=== PATIENT | female | born 2000 | race Caucasian/White ===

== ENCOUNTER 2022-11-09 19:10 | Emergency (ER) | payer BC, SELFPAY ==
[2022-11-09 19:26] VITALS: BP 129/81; PULSE 93; RESP 16; TEMP 36.9; O2SAT 100
--- NOTE | 2022-11-09 19:29 | ED.SKABFB ---
HPI - Skin/Abscess/Foreign Bdy General Chief complaint: Skin/Abscess/Foreign Body Stated complaint: rash Time Seen by Provider: 11/09/22 19:15 Source: patient Mode of arrival: ambulatory Limitations: no limitations History of Present Illness HPI narrative: patient is a 22-year-old female who presents with poison melecio rash to face, upper arms, thighs and back. Patient states it has been there since Sunday. Patient has used [id number] poison melecio treatments, hydrocortisone cream, Benadryl and Zyrtec with only lneh-jw-wskysdye relief. Patient states normally it goes away on its own but this has been spreading and worse. Denies any shortness of breath, mouth swelling, tongue swelling. Related Data Allergies Allergy/AdvReac Type Severity Reaction Status Date / Time No Known Allergies Allergy Verified 11/09/22 19:30 Review of Systems Review of Systems: All systems reviewed & are unremarkable except as noted in HPI and below Constitutional: Constitutional: Denies body ache(s), Denies chills, Denies fatigue, Denies fever(s), Denies headache(s), Denies malaise and Denies weakness Eyes: Eyes: Denies blurry vision, Denies irritation and Denies loss of vision ENT: Denies otalgia, Denies headache(s), Denies nasal discharge, Denies sinus pain and Denies sore throat Cardiovascular: Cardiovascular: Denies chest pain, Denies irregular heart rhythm and Denies dyspnea Respiratory: Respiratory: Denies dyspnea Gastrointestinal: Gastrointestinal: Denies abdominal pain, Denies melena, Denies hematochezia, Denies diarrhea, Denies nausea and Denies vomiting Musculoskeletal: Musculoskeletal: Denies back pain, Denies myalgias and Denies arthralgias Integumentary/Breasts: Skin/Breast: Reports pruritus and Reports rash Neurologic: Denies headache(s), Denies loss of vision and Denies weakness Psychiatric: Psychiatric: Reports no additional psychiatric complaints Endocrine: Endocrine: Denies fatigue PMFSH Comments At time of signature, agree with nursing past medical, surgical, social and family history. There is no relevant family history pertinent to the presenting complaint. Exam Const: General: cooperative, healthy appearing, comfortable, no acute distress and well nourished Nutritional Appearance: well nourished Orientation/consciousness: patient oriented x3 Limitations: no limitations HENMT: Head: normal to inspection, normocephalic and atraumatic Ears: hearing grossly normal bilaterally and external ears normal Face/Nose/Sinus: Normal external nose present, normal facial exam and face symmetric Face and sinus: normal facial exam and face symmetric Mouth: Yes lip normal Eyes: General: appearance normal, both eyes and all related structures Alignment and Position: alignment normal and position normal Periorbital: periorbital findings normal Eyelids: eyelids normal Pupils: Equal, round and reactive pupils present EOM: EOMs intact bilaterally Neck: Neck: normal visual inspection, full ROM and supple Chest: Chest palpation & inspection: normal inspection of the chest Resp: Effort & Inspection: normal respiratory effort and able to speak in complete sentences Auscultation: clear to auscultation bilaterally Cardio: Rate: regular rate Rhythm: regular rhythm Heart sounds: S1 normal heart sound present and S2 normal heart sound present GI: Inspection: normal to inspection Skin: General skin exam: normal color and no rashes or lesions noted Rashes: rashes noted vesicles full body arrangement grouped, borders sharp, color red and surface waxy Neuro: General: patient oriented x3 and moves all extremities Cranial nerves: Yes Equal, round and reactive pupils present Speech: normal speech Gait exam (Neuro): Normal gait present Extrem: General: normal to inspection, full ROM and no edema Psych: Appearance: grossly normal and well kempt Mental Status: mental status grossly normal Speech and movement: Normal speech and movement
[2022-11-09 19:31] VITALS: BP 129/81; PULSE 93; RESP 16; TEMP 36.9; O2SAT 100
== END 2022-11-09 20:13 | disposition home or self-care (01) ==
PROVIDERS: Emergency Provider Nurse Practitioner Family; PCP Nurse Practitioner Family
DX: L23.7 Allergic contact dermatitis due to plants, except food (principal)
CPT/HCPCS: 99203; G0463

== ENCOUNTER 2024-05-13 08:33 | Outpatient (CLI) | payer BC, SELFPAY ==
--- NOTE | ~2024-05-13 | US_ITS ---
US breast LT limited 05/13/2024 09:15 Indication: Palpable left breast lump Procedure: High-resolution Limited ultrasound of the left breast Comparison: No prior studies for comparison. Findings: At 12:00, 3 cm from the nipple there is a 4 mm cyst. No suspicious masses to suggest malign mili. Impression: 1: No sonographic evidence for malignancy in the left breast. BI-RADS CATEGORY 2 - BENIGN FINDINGS Reviewed, dictated and finalized at location B. Impression: 1: No sonographic evidence for malignancy in the left breast. BI-RADS CATEGORY 2 - BENIGN FINDINGS
--- OUTSIDE RECORDS SUMMARY | 2024-05-13 08:47 | XMS_ITS | Clinical Summary ---
Author Organization [facility] Address [address] [place] [id number] Care Team Providers Care Railcar Carpenter Name Role Phone Unavailable Primary Care Provider Unavailabl e Social History Tobacco Use Types Packs/Day Years Used Date Smoking Tobacco: Never Assessed Comments Unknown Sex and Gender Information Value Date Recorded Sex Assigned at Not on file Legal Sex Female 6:38 PM CDT Gender Identity Not on file Sexual Orientation Not on file Plan of Treatment Health Maintenance Due Date Last Done Comments Cervical Cancer Screening Pa p Smear (Age 21 to 29) Every 3 Years 1999 Cervical Cancer Screening 1999 Annual Physical 06/02/2002 HPV Vaccines (1 - 3-dose series) 06/02/2014 Hepatitis C 06/02/2017 DTaP, Tdap and Td Vaccines ( 1 - Tdap) 06/02/2018 Hepatitis B Vaccines (1 of 3 - 19+ 3-dose series) 06/02/2018 COVID-19 Vaccine (2023-2 5 season) 2023 Influenza Adult (#1) 2023 Meningococcal B Vaccine Aged Out No l onger eligible based on patient's age to complete this topic Meningococcal Vaccine Aged Out No gonzalo phoebe eligible based on patient's age to complete this topic Pneumococcal Vaccine: Pediat rics (0 to 5 Years) and At-Risk Patients (6 to 64 Years) Aged Out No longer eligible b ased on patient's age to complete this topic RSV Immunizations Under 20 Months Aged Out No longer eligible based on patient's age to complete this topic
--- OUTSIDE RECORDS SUMMARY | 2024-05-13 08:47 | XMS_ITS | Clinical Summary ---
Author Organization [facility] Address [address] [place] [address] Care Team Providers Care Traffic Warehouse Supervisor Name Role Phone Daniel Espinoza MD Unavailable [phone] Daniel Espinoza MD Primary Care Provider [phone] Source Comments [facility],non-owned Affiliates and Associated Physician Practices is amultiple site organization consisting of ambulatory clinics and hospital sitesin [place], [place], [place] and [place]. This disclosure is being madepursuant to the Care Everywhere program and may not contain all information available regarding this patient. Last updated 17.[facility] Allergies No known active allergies Medications Be aware that medications may not be up to date on this document. Always verify current medications with the patient. No known medications Active Problems Problem Noted Date Diagnosed Date Well child visit 09/09/2010 Overview (09/07/2016): 10 yo 09/09/10 13 yo 08/28/13 14 yo 08/18/14 16 yo 09/07/16 Resolved Problems Problem Noted Date Diagnosed Date Resolved Date Streptococcal pharyngitis 05/02/2010 Overview (05/02/2010): 05/02/10 amox (phone script - sr with strep) Immunizations Name Administration Dates Next Due INFLUENZA VACCINE, TRIV. (AF LURIA, FLUZONE TRIVALENT; 6MO+) (IIV3) 02/06/2012 DPT 07/04/2004, 1,1999,10/16,1999 FLU VACCINE TRI IIV3 SPLIT P F IM (FLUVIRIN) 01/18/2009 HEP A PEDS 2 DOSE 08/28/2013,09/09/2010 HEP B VACCINE, PED/ADOL 09/28/2000,10/16,1999,06/02 HIB BOOSTER 09/28/2000,1999,1999 Human Papilloma Virus Kuldip valent Vaccine 03/01/2015,10/23/2014,08/18/2014 INFLUENZA A M1P3-49 VACCINE 02/22/2009, 9 INFLUENZA VACCINE 12/18/2007, 7,03/02/2006,01/11 Influenza Nasal 12/07/2010,01/25/2010 JAMEL VACCINE QUAD LAIV4 PF NASAL 01/12/2014 MENINGOCOCCAL CONJUGATE (MCV4P) 09/14/2015,08/28 MMR 07/04/2004,06/26/2000 PNEUMOCOCCAL PPSV23 09/28/2000,06/26/2000 POLIO IPV 08/11/2003, 1,1999,08/16 PPD 08/11/2003 TDAP (7yrs+) 09/09/2010 VARICELLA 09/09/2010,06/26/2000 Family History Medical History Relation Name Comments Hypercholesterolemia Maternal Grandfather Hypertension Maternal Grandfather Anemia Maternal Grandmother Arthritis Maternal Grandmother Hypercholesterolemia Paternal Grandfather Hypertension Paternal Grandfather Anemia Paternal Grandmother Allergies Sister Asthma Sister Relation Name Status Comments Maternal Grandfather Maternal Grandmother Paternal Grandfather Paternal Grandmother Sister Social History Tobacco Use Types Packs/Day Years Used Date Smoking Tobacco: Never Alcohol Use Standard Drinks/Week Comments No 0 (1 standard drink = 0.6 oz pur e alcohol) Sex and Gender Information Value Date Recorded Sex Assigned at Not on file Gender Identity Not on file Sexual Orientation Not on file Last Filed Vital Signs Vital Sign Reading Time Taken Comments Blood Pressure 108/64 09/07/2016 3:54 PM CDT Pulse - - Temperature 36 C (96.8 F) 09/13/2016 3:06 PM CDT Respiratory Rate - - Oxygen Saturation - - Inhaled Oxygen Concentration - - Weight 71 kg (156 lb 8 oz) 09/07/2016 3:54 PM CD T Height 175.3 cm (5' 9 ) 09/07/2016 3:54 PM CDT Body Mass Index 23.11 09/07/2016 3:54 PM CDT Plan of Treatment Health Maintenance Due Date Last Done Comments PAP SMEAR 1999 HIV SCREENING 06/02/2014 CHLAMYDIA/GONORRHEA SCREENING 2015 HEPATITIS C SCREENING 05/29/2017 DTAP/TDAP/TD VACCINES (7 - Td or Tdap) 09/09/2020 09/09/2010, 07/04/2004, 09/28/2000, Additional history exists COVID-19 VACCINE ( season) 2023 INFLUENZA VACCINE (#1) 2023 4, 02/06/2012, 12/07/2010, Additional history exists DEPRESSION SCREENING 02/27/2024 ZOSTER VACCINE (1 of 2) 06/02/2049 HEPATITIS B VACCINE Completed 09/28/2000, 1999, 1999, Additional history exists HIB VACCINE Completed 09/28/2000, 09/27, 1999 PNEUMOCOCCAL VACCINE Aged Out 09/28/2000, 06/27/19 No longer eligible based on patient's age to complete this topic HPV VACCINE Completed 03/01/2015, 09/27, 08/18/2014 MENINGOCOCCAL GROUPS A/C/Y/W VACCINE Completed 09/14/2015, 08/28/2013 MENINGOCOCCAL (Group B) VACCINE SHARED DECISION-MAKING Aged Out No longer eligible based on patient's age to complete this topic Goals Goal Patient Goal Type Associated Problems Recent Progress Patient-Stated? Author Use safety retraint in car Lifestyle On track( 017 3:48 PM CDT) Tang Roberson MA Care Teams Traffic Warehouse Supervisor Relationship Specialty Start Date End Date Daniel Espinoza MD PCP - Pediatrics 01/15/09 Daniel Espinoza MD PCP - General Pediatrics 01/12/14
== END 2024-05-13 08:34 | disposition home or self-care (01) ==
PROVIDERS: PCP Nurse Practitioner Family; Visit Provider Student in an Organized Health Care Education/Training Program
DX: N60.02 Solitary cyst of left breast (principal)
CPT/HCPCS: 76642